=== PATIENT | male | born 1935 | race Caucasian/White ===

== ENCOUNTER 2023-04-02 10:35 | Observation (INO) ==
[2023-04-02] MEDS ORDERED: IOPAMIDOL 100 ML BOTTLE IV ONE (10:36)
[2023-04-02 10:54] LABS: POC INR 1.2 (0.8-1.2); POC Pro Time 13.9 (11.9-14.5)
[2023-04-02 11:01] LABS: POC Calcium, Ionized 1.03 (1.16-1.32); POC Creatinine 0.8 (0.6-1.2); POC Potassium 3.9 (3.3-5.1)
--- NOTE | 2023-04-02 11:31 | Cat Scan Report ---
History: Acute stroke symptoms with double vision. technique: The brain was imaged without contrast in axial plane at 2.5 mm intervals. Sagittal and coronal reformats were created. The radiation exposure was limited using dose reduction technology. FINDINGS: There is no acute hemorrhage. No infarct is detected. There are are large confluent areas of decreased attenuation in the white matter throughout the frontal and parietal lobes consistent with age-related ischemia or degeneration. There is moderate frontal and temporal and milder parietal and cerebellar atrophy. The ventricles are normal in size. No abnormal extra-axial fluid collection is present. There is a plate at the left skull base behind the foramen magnum following recent cervical spine fusion. There is no apparent inflammation or hematoma at this site. IMPRESSION: No no hemorrhage or evidence of acute infarct Age-related degenerative changes Dr. Figueroa was called with the report Interpreted and Authenticated by: Tl Bailey 04/02/23
[2023-04-02 11:46] LABS: Basophils # (Auto) 0.04 K/mcL (0.00-0.30); Basophils % (Auto) 0.4 % (0.0-2.0); Eosinophils # (Auto) 0.05 K/mcL (0.00-0.70); Eosinophils % (Auto) 0.5 % (0.0-7.0); Hematocrit 36.2 % (40.1-51.0); Hemoglobin 12.2 g/dL (13.7-17.5); Lymphocytes # (Auto) 1.48 K/mcL (1.50-4.80); Lymphocytes % (Auto) 14.3 % (15.5-49.0); Mean Corpuscular HGB Conc 33.7 g/dL (31.0-36.0); Mean Platelet Volume 9.4 fL (8.8-12.5); Monocytes # (Auto) 0.59 K/mcL (0.10-0.90); Monocytes % (Auto) 5.7 % (1.0-12.0); Neutrophils % (Auto) 77.9 % (38.0-78.0); Platelet Count 289 K/mcL (140-440); RBC 3.98 M/mcL (4.63-6.08); WBC 10.3 K/mcL (4.5-11.0)
--- NOTE | 2023-04-02 12:04 | Cat Scan Report ---
History: New stroke symptoms and double vision TECHNIQUE: Following injection of intravenous nonionic contrast, arterial phase images were acquired from the ascending aorta to the top of the head. Sagittal, coronal, MIPS and 3-D volume reconstructed images were created. The radiation exposure was limited using dose reduction technology NECK: The aortic arch is normal in caliber with small amount of plaque. There is no aneurysm or dissection. There is a moderate amount of plaque in the innominate artery causing approximately 25% stenosis. There is also plaque in the proximal subclavian arteries bilaterally causing 30% stenosis in the left and less than 20% on the right. The proximal and mid portions of the common carotid arteries are normal in caliber. There is a large amount calcified plaque in the right carotid bifurcation and a moderate amount on the left side. This is causing a critical stenosis of the right external carotid and approximately 50% stenosis of the left external carotid. There is a 50% stenosis of the proximal right internal carotid and less than 20% stenosis in the left internal carotid. Mid and distal portions of both internal carotids are normal in caliber. The vertebral arteries are normal. The left side is dominant. Patient has mild emphysema in both upper lobes, right worse than left. There are postoperative changes following stabilization of a transverse fracture of the odontoid. There are screws placed from a posterior approach into the dens and body of C2. They are connected posteriorly with rods which are secured to the occiput. There is also bone graft material posterior to the spinous processes of C1 and C2. Brain: The petrous and cavernous portions of both internal carotids are patent. There are small calcified plaques in the cavernous portions of both internal carotids which are not causing stenosis. Supraclinoid internal carotids are normal. The anterior and middle cerebral arteries are normal in caliber. There is a patent anterior communicating artery. The intracranial portions of both vertebral arteries are normal. The left is dominant. The basilar artery is normal. There is normal blood flow in the posterior inferior, anterior inferior and superior cerebellar arteries. The posterior cerebral arteries fill preferentially be a large posterior communicating arteries. The P1 segments of the posterior cerebrals are congenitally hypoplastic but patent. There is no intracranial stenosis or thrombosis. No aneurysm or vascular malformation are present. There is no enhancing lesion. IMPRESSION: Large amount of calcified plaque in the right carotid bifurcation causing critical stenosis of the external carotid and approximately 50% stenosis of the internal carotid. Normal intracranial arterial circulation with no vascular occlusion. Emphysema Normal alignment following fusion from the occiput through C2 Dr. Figueroa was called with the report Interpreted and Authenticated by: Tl Bailey 04/02/23
[2023-04-02 12:05] LABS: ALT/SGPT 9 U/L (<40); AST/SGOT 17 U/L (<40); Albumin 3.5 gm/dL (3.2-5.2); Alkaline Phosphatase 75 U/L (39-117); Bilirubin,Direct < 0.2 mg/dL (0-0.3); Bilirubin,Total 0.3 mg/dL (0.1-1.0); Globulin 2.8 gm/dL (2.2-3.7)
[2023-04-02] MEDS ORDERED: CLOPIDOGREL 300 MG TABLET PO ONE (12:20)
[2023-04-02] MEDS ORDERED: ASPIRIN 325 MG ENTERIC COATED TABLET PO SCH (12:28)
--- NOTE | 2023-04-02 12:55 | Emergency Department Note ---
HPI General Chief complaint: Stroke Symptoms Stated complaint: Double vision Time Seen by Provider: 04/02/23 10:58 Source: patient Mode of arrival: EMS Limitations: no limitations History of Present Illness HPI Narrative: Narrative: 88-year-old male lives with his son at home. States that he awoke at 415 this morning. (He went to bed at 930). With double vision when he looked to the right. He denied any headache or any other symptoms denied any antecedent trauma. He said it felt like something was in his eye and that is why he waited until his granddaughter came over and forced him to come to the ER. Patient's past medical history includes COPD diabetes mellitus type 2 hypertension C1-C2 subluxation with recent surgery for fixating that. Related Data Home Medications Medication Instructions Recorded Confirmed acetaminophen 325 mg tablet 650 mg PO .q4-6 PRN Pain 02/07/23 04/02/23 (Tylenol) Previous Rx's Medication Instructions Recorded diclofenac sodium 1 % topical gel See Rx Instructions .Route 06/15/21 .COMPLEX #100 grams albuterol sulfate 90 mcg/actuation 2 puff inhalation Q6H PRN 03/04/22 aerosol inhaler shortness of breath or wheezing #6.7 grams omeprazole 20 mg capsule,delayed 20 mg PO QDAY #90 caps 04/13/22 release sertraline 100 mg tablet 100 mg PO QDAY #90 tabs 09/27/22 metformin 500 mg tablet,extended 500 mg PO QDAY #90 tabs 10/04/22 release 24 hr pravastatin 40 mg tablet 40 mg PO QHS #90 tabs 10/11/22 ipratropium bromide 42 mcg (0.06 2 spray intranasal TID-QID PRN 12/09/22 %) nasal spray allergy symptoms #15 mL prednisone 5 mg tablet 5 mg PO QDAY #60 tabs 01/03/23 budesonide-formoterol HFA 160 2 puff inhalation BID #10.2 grams 01/27/23 mcg-4.5 mcg/actuation aerosol inhaler (Symbicort) lidocaine 5 % topical patch 1 patch topical QDAY neck pain #15 01/27/23 (Lidoderm) ea folic acid 1 mg tablet 1 mg PO QDAY #90 tabs 01/31/23 methotrexate sodium 2.5 mg tablet 25 mg PO QWEEK #120 tabs 02/03/23 trazodone 50 mg tablet 100 mg PO QHS PRN insomnia #90 tabs 02/21/23 Allergies Allergy/AdvReac Type Severity Reaction Status Date / Time No Known Drug Allergies Allergy Verified 02/07/23 10:12 Review of Systems ROS ROS Narrative: Narrative: All systems ED: reviewed and negative except as stated. PFSH Narrative Patient History Narrative: Narrative: Medical/Surgical/Family History All Active Problems (Updated 04/02/23 @ 12:57 by Gregg Figueroa MD) Binocular vision disorder with diplopia (Acute) Visit for suture removal (Acute) Chronic pain (Chronic) C1-C2 dislocation (Chronic) Difficulty sleeping (Acute) S/P cervical spinal fusion (Acute) Neck pain, chronic (Acute) Elevated erythrocyte sedimentation rate (Acute) Odontoid fracture with nonunion (Acute) Degenerative cervical spinal stenosis (Acute) DDD (degenerative disc disease), cervical (Acute) Anemia (Chronic) Anxiety (Chronic 06/25/14) Barretts esophagus (Chronic) COPD (chronic obstructive pulmonary disease) (Chronic) Cough (Chronic) Depression (Chronic) 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) Gastroesophageal reflux (Chronic) Hyperlipemia (Chronic) Essential hypertension, benign (Chronic) Dysmetabolic syndrome X (Chronic) Obstructive uropathy (Chronic) Onychomycosis (Chronic) Osteoarthrosis (Chronic) Peripheral neuropathy (Chronic) Peripheral vascular disease (Chronic) 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, lip (Chronic) Tobacco abuse (Chronic) Tremor (Chronic) Enlarged prostate (Chronic) 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) Presence of intraocular lens (Chronic 10/24/15) Ocular hypertension, 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 degeneration of both eyes (Chronic 10/24/15) Weight loss (Chronic) Thenar muscle atrophy of right hand (Chronic) Right hand paresthesia (Chronic) Neck pain (Chronic) Metabolic Syndrome X (Chronic) Radicular pain in right arm (Acute) Rheumatoid arthritis (Chronic) Encounter for long-term (current) use of high-risk medication (Chronic) Right carpal tunnel syndrome (Chronic) 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) Near syncope (Acute) 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) Stress (Chronic) Decreased hearing of both ears (Chronic) Poor dentition (Chronic) Alcohol abuse (Chronic) Medicare annual wellness visit, subsequent (Acute) BPH w urinary obs/LUTS (Acute) Dizziness (Acute) 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 Now down to 1 beer every 2 days, but feeling some agitation that is relieved by beer Encouraged to very slowly wean down on the alcohol rather than trying to quit cold turkey Anemia H/O Anxiety (06/25/14) Increased anxiety since the loss of his . Also likely associated with decreased alcohol intake. Increase sertraline to 50 mg daily He does not use lorazepam at all anymore Discussed slowly weaning off alcohol Barretts esophagus Prilosec 20 mg daily. No reflux symptoms. 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 Peng resected Cellulitis Chronic pain Closed fracture of leg Closed hand fracture COPD (chronic obstructive pulmonary disease) No recent PFTs Cough Chest x-ray 01/16/2018 showed COPD Decreased hearing of both ears Patient potentially interested in hearing aids. Refusing audiology referral. He wants to go to [facility] and get tested there. 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 Cervantes Obstructive uropathy Ocular hypertension, bilateral (10/24/15) Dr. Cervantes Onychomycosis Osteoarthrosis Peripheral neuropathy Diabetic Peripheral vascular disease Poor dentition States he has been putting off going to the dentist while he was having his neck problems. But now that he is adequately treated for RA, he states that he will go to the dentist to get his teeth worked on. Presence of intraocular lens (10/24/15) Reactive airway disease Rheumatoid arthritis Rheumatoid pannus of cervical spine Tobacco abuse Greater than 55-[id number]-[id number] history. Continues to smoke every day, about 2 p acks/day. Tremor Trigger finger of both hands Vitreous degeneration of both eyes (10/24/15) Dr. Cervantes Surgical History (Updated 01/27/23 @ 10:15 by Darryl Luna DO) Hx of arthroscopic knee surgery right Hx of cataract surgery bilateral Hx of colonoscopy (03/02/06) multiple HP colonic polyps Hx of decompressive lumbar laminectomy Hx of esophagogastroduodenoscopy (03/06/09) Arce's metaplasia Hx of inguinal hernia repair 01/2007-left inguinal hernia Hx of thumb surgery 05/2006-removal mass from right thumb Hx of tonsillectomy Status post surgery 12/2012-extensive resection of lower lip, mostly to the right side for malignancy Family History father , 53 Carcinoma in situ brother Atherosclerosis of coronary artery Diabetes mellitus mother , 91 Senile dementia Social History Smoking Status: Current every day smoker Alcohol Intake Frequency: 2+ drinks per day Substance Use: does not use Exam Narrative Narrative: Narrative: General: Alert and oriented x3 answers questions cogently GCS equals 15. Skin: Atraumatic. Neuro: Pupils equal round reactive and accommodating extraocular movements are intact confrontational visual duncan are within normal limits GCS equals 15 NIH stroke scaling was difficult as patient has difficulty testing the lower extremities. But no peripheral lysing sensory or motor deficit was noticed. CV: Regular rate and rhythm without murmurs clicks rubs or gallops. Pulmonary: Clear to auscultation equal bilaterally without rales rhonchi or wheezes. General Limitations: no limitations Course Course Course Narrative: CT scan with and without dye for showed a fairly significant stenosis in the right carotid and the bifurcation of the carotid but no complete obstruction. The radiologist stated that the basilar circulation seem to be intact however the neurologist who was consulted and felt this was typical for a basilar stroke. He advised aspirin and clopidogrel and an MRA soon as possible. Patient was admitted in the hospitalist agreed to see the patient in the ED. Vital Signs Vital signs: Vital Signs Temperature 97.0 F 04/02/23 10:40 Pulse Rate 67 04/02/23 10:40 Respiratory Rate 17 04/02/23 10:40 Blood Pressure 135/75 04/02/23 10:40 Pulse Oximetry (%) 100 04/02/23 10:40 Oxygen Delivery Method Room Air 04/02/23 10:40 Temperature 98.4 F 04/03/23 04:01 Pulse Rate 60 04/03/23 06:01 Respiratory Rate 12 04/03/23 06:01 Blood Pressure 125/63 04/03/23 06:01 Pulse Oximetry (%) 96 04/03/23 06:01 Oxygen Delivery Method Room Air 04/03/23 04:01 MDM MDM Narrative Medical decision making narrative: Narrative: Lab Data 04/02/23 10:55 04/03/23 05:16 Labs: Lab Results 04/02/23 04/02/23 04/02/23 Range/Units 10:49 10:55 10:55 WBC 10.3 (4.5-11.0) K/mcL RBC 3.98 L (4.63-6.08) M/mcL Hgb 12.2 L (13.7-17.5) g/dL Hct 36.2 L (40.1-51.0) % POC Hct (41-55) MCV 91.0 (80.0-100.0) fL MCH 30.7 (26.0-34.0) pg MCHC 33.7 (31.0-36.0) g/dL RDW 16.0 H (11.5-14.5) % Plt Count 289 (140-440) K/mcL MPV 9.4 (8.8-12.5) fL Immature Gran % (Auto) 1.2 H (0.0-0.5) % Neut % (Auto) 77.9 (38.0-78.0) % Lymph % (Auto) 14.3 L (15.5-49.0) % [place] % (Auto) 5.7 (1.0-12.0) % Eos % (Auto) 0.5 (0.0-7.0) % Baso % (Auto) 0.4 (0.0-2.0) % Lymph # (Auto) 1.48 L (1.50-4.80) K/mcL [place] # (Auto) 0.59 (0.10-0.90) K/mcL Eos # (Auto) 0.05 (0.00-0.70) K/mcL Baso # (Auto) 0.04 (0.00-0.30) K/mcL Immature Gran # 0.12 H (0.00-0.05) K/mcl Absolute Neutrophils 8.06 H (1.80-8.00) K/mcL POC PT 13.9 (11.9-14.5) POC INR 1.2 (0.8-1.2) APTT 24.6 (20.0-37.0) sec POC VBG pH (7.32-7.42) POC VBG pCO2 at Temp (41-51) POC VBG pO2 (25-40) POC VBG HCO3 (24-28) POC VBG Total CO2 (25-29) POC Venous O2 Sat (40-70) POC VBG Base Excess (-2-2) VBG Lactic Acid (0.5-2) POC Sodium (133-145) POC Potassium (3.3-5.1) POC Chloride (96-108) POC Total CO2 (22-30) POC BUN (6-20) POC Creatinine (0.6-1.2) POC Glucose (70-105) Hemoglobin A1c (4.0-6.0) % Hgb Estim Average Glucose mg/dL POC WB Ioniz Calcium (1.16-1.32) Total Bilirubin (0.1-1.0) mg/dL Direct Bilirubin (0-0.3) mg/dL AST (<40) U/L ALT (<40) U/L Alkaline Phosphatase (39-117) U/L Total Protein (5.9-8.4) gm/dL Albumin (3.2-5.2) gm/dL Globulin (2.2-3.7) gm/dL Triglycerides (<150) mg/dL Cholesterol (<200) mg/dL LDL Cholesterol, Calc (<100) mg/dL Non-HDL Cholesterol (<130) mg/dL HDL Cholesterol (>40) mg/dL POC Troponin I (0.00-0.08) 04/02/23 04/02/23 04/02/23 Range/Units 10:55 10:55 10:56 WBC (4.5-11.0) K/mcL RBC (4.63-6.08) M/mcL Hgb (13.7-17.5) g/dL Hct (40.1-51.0) % POC Hct (41-55) MCV (80.0-100.0) fL MCH (26.0-34.0) pg MCHC (31.0-36.0) g/dL RDW (11.5-14.5) % Plt Count (140-440) K/mcL MPV (8.8-12.5) fL Immature Gran % (Auto) (0.0-0.5) % Neut % (Auto) (38.0-78.0) % Lymph % (Auto) (15.5-49.0) % [place] % (Auto) (1.0-12.0) % Eos % (Auto) (0.0-7.0) % Baso % (Auto) (0.0-2.0) % Lymph # (Auto) (1.50-4.80) K/mcL [place] # (Auto) (0.10-0.90) K/mcL Eos # (Auto) (0.00-0.70) K/mcL Baso # (Auto) (0.00-0.30) K/mcL Immature Gran # (0.00-0.05) K/mcl Absolute Neutrophils (1.80-8.00) K/mcL POC PT (11.9-14.5) POC INR (0.8-1.2) APTT (20.0-37.0) sec POC VBG pH 7.47 H (7.32-7.42) POC VBG pCO2 at Temp 37.6 L (41-51) POC VBG pO2 37 (25-40) POC VBG HCO3 27.2 (24-28) POC VBG Total CO2 28.0 (25-29) POC Venous O2 Sat 75.0 H (40-70) POC VBG Base Excess 3.0 H (-2-2) VBG Lactic Acid 1.2 (0.5-2) POC Sodium (133-145) POC Potassium (3.3-5.1) POC Chloride (96-108) POC Total CO2 (22-30) POC BUN (6-20) POC Creatinine (0.6-1.2) POC Glucose (70-105) Hemoglobin A1c 6.3 H (4.0-6.0) % Hgb Estim Average Glucose 134 mg/dL POC WB Ioniz Calcium (1.16-1.32) Total Bilirubin 0.3 (0.1-1.0) mg/dL Direct Bilirubin < 0.2 (0-0.3) mg/dL AST 17 (<40) U/L ALT 9 (<40) U/L Alkaline Phosphatase 75 (39-117) U/L Total Protein 6.3 (5.9-8.4) gm/dL Albumin 3.5 (3.2-5.2) gm/dL Globulin 2.8 (2.2-3.7) gm/dL Triglycerides 108 (<150) mg/dL Cholesterol 169 (<200) mg/dL LDL Cholesterol, Calc 82 (<100) mg/dL Non-HDL Cholesterol 103 (<130) mg/dL HDL Cholesterol 66 (>40) mg/dL POC Troponin I (0.00-0.08) 04/02/23 04/02/23 Range/Units 10:59 11:01 WBC (4.5-11.0) K/mcL RBC (4.63-6.08) M/mcL Hgb (13.7-17.5) g/dL Hct (40.1-51.0) % POC Hct 39.0 L (41-55) MCV (80.0-100.0) fL MCH (26.0-34.0) pg MCHC (31.0-36.0) g/dL RDW (11.5-14.5) % Plt Count (140-440) K/mcL MPV (8.8-12.5) fL Immature Gran % (Auto) (0.0-0.5) % Neut % (Auto) (38.0-78.0) % Lymph % (Auto) (15.5-49.0) % [place] % (Auto) (1.0-12.0) % Eos % (Auto) (0.0-7.0) % Baso % (Auto) (0.0-2.0) % Lymph # (Auto) (1.50-4.80) K/mcL [place] # (Auto) (0.10-0.90) K/mcL Eos # (Auto) (0.00-0.70) K/mcL Baso # (Auto) (0.00-0.30) K/mcL Immature Gran # (0.00-0.05) K/mcl Absolute Neutrophils (1.80-8.00) K/mcL POC PT (11.9-14.5) POC INR (0.8-1.2) APTT (20.0-37.0) sec POC VBG pH (7.32-7.42) POC VBG pCO2 at Temp (41-51) POC VBG pO2 (25-40) POC VBG HCO3 (24-28) POC VBG Total CO2 (25-29) POC Venous O2 Sat (40-70) POC VBG Base Excess (-2-2) VBG Lactic Acid (0.5-2) POC Sodium 137 (133-145) POC Potassium 3.9 (3.3-5.1) POC Chloride 103 (96-108) POC Total CO2 26.0 (22-30) POC BUN 19 (6-20) POC Creatinine 0.8 (0.6-1.2) POC Glucose 66 L (70-105) Hemoglobin A1c (4.0-6.0) % Hgb Estim Average Glucose mg/dL POC WB Ioniz Calcium 1.03 L (1.16-1.32) Total Bilirubin (0.1-1.0) mg/dL Direct Bilirubin (0-0.3) mg/dL AST (<40) U/L ALT (<40) U/L Alkaline Phosphatase (39-117) U/L Total Protein (5.9-8.4) gm/dL Albumin (3.2-5.2) gm/dL Globulin (2.2-3.7) gm/dL Triglycerides (<150) mg/dL Cholesterol (<200) mg/dL LDL Cholesterol, Calc (<100) mg/dL Non-HDL Cholesterol (<130) mg/dL HDL Cholesterol (>40) mg/dL POC Troponin I < 0.02 (0.00-0.08) Discharge Plan Patient/Caregiver Discharge Instructions Pt seen by LAMINATION ASSEMBLER/PA only: No Clinical Impression: Binocular vision disorder with diplopia Patient Disposition: Xfer As Inpt ([facility]) Condition: Good Discharge Date/Time: 04/02/23 14:55
--- NOTE | 2023-04-02 13:10 | Internal Med History&Physical ---
HPI History of Present Illness Patient information: Note initiated : 04/02/23 at 1:09 pm Service Date, if different from initiated Date: [] Patient: Joey West a 88 y/o M admitted on for Double vision. Chief Complaint: [] History of present illness: Mr. West is a 88 year old M Presents the ED with blurry vision. Patient is accompanied by his granddaughter. Patient states that he woke up today around 430 and he had trouble seeing. He talked his granddaughter at 10:00 and said he had something in his eye. His granddaughter came over but could not find anything in his eye. He noted that he had blurry vision that worsened when he looked to the right. Patient seen in the ED and evaluated for stroke. Noncontrast CT brain showed no acute stroke or hemorrhage. CTA head and neck showed 50% stenosis in the right internal carotid and less than the left. Case was discussed with stroke neurologist who recommended dual antiplatelet therapy. Patient denies any headache nausea vomiting. Patient denies any focal weakness or numbness. Patient denies any speech disturbance. Patient says his symptoms have improved but are still present. EKG with NSR. Review of Systems: Pertinent positives as above. Denies headache/fever/chills /nausea/vomiting/chest or abdominal pain/cough/dyspnea/diarrhea. Remaining 10 point review of system reviewed negative PHYSICAL EXAM General: Alert, Awake, No acute Distress Eyes/N/T: EOMI, no scleral icterus, PERRL, dry MM Head/Neck: neck supple, full ROM, normocephalic atraumatic CV: RRR, No murmurs, normal s1/s2 Pulm: Clear b/l, no wheezing/rhonchi/rales, no respiratory distress Abd: soft, nontender, +BS x4 Ext: no clubbing/cyanosis/edema, nontender Neuro: Alert, no pronator drift, symmetrical face, speech clear, sensations intact, strength appears symmetrical bilateral upper and lower. Patient unable to adduct his left eye (medial rectus). Psychiatric: Skin: warm/dry, normal color PFSH PFSH All Active Problems (Updated 04/02/23 @ 12:57 by Gregg Figueroa MD) Binocular vision disorder with diplopia (Acute) Visit for suture removal (Acute) Chronic pain (Chronic) C1-C2 dislocation (Chronic) Difficulty sleeping (Acute) S/P cervical spinal fusion (Acute) Neck pain, chronic (Acute) Elevated erythrocyte sedimentation rate (Acute) Odontoid fracture with nonunion (Acute) Degenerative cervical spinal stenosis (Acute) DDD (degenerative disc disease), cervical (Acute) Anemia (Chronic) Anxiety (Chronic 06/25/14) Barretts esophagus (Chronic) COPD (chronic obstructive pulmonary disease) (Chronic) Cough (Chronic) Depression (Chronic) 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) Gastroesophageal reflux (Chronic) Hyperlipemia (Chronic) Essential hypertension, benign (Chronic) Dysmetabolic syndrome X (Chronic) Obstructive uropathy (Chronic) Onychomycosis (Chronic) Osteoarthrosis (Chronic) Peripheral neuropathy (Chronic) Peripheral vascular disease (Chronic) 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, lip (Chronic) Tobacco abuse (Chronic) Tremor (Chronic) Enlarged prostate (Chronic) 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) Presence of intraocular lens (Chronic 10/24/15) Ocular hypertension, 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 degeneration of both eyes (Chronic 10/24/15) Weight loss (Chronic) Thenar muscle atrophy of right hand (Chronic) Right hand paresthesia (Chronic) Neck pain (Chronic) Metabolic Syndrome X (Chronic) Radicular pain in right arm (Acute) Rheumatoid arthritis (Chronic) Encounter for long-term (current) use of high-risk medication (Chronic) Right carpal tunnel syndrome (Chronic) 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) Near syncope (Acute) 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) Stress (Chronic) Decreased hearing of both ears (Chronic) Poor dentition (Chronic) Alcohol abuse (Chronic) Medicare annual wellness visit, subsequent (Acute) BPH w urinary obs/LUTS (Acute) Dizziness (Acute) intermediate (current) use of systemic steroids (Chronic) Poor balance (Acute) Trigger finger of both hands (Acute) 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 Now down to 1 beer every 2 days, but feeling some agitation that is relieved by beer Encouraged to very slowly wean down on the alcohol rather than trying to quit cold turkey Anemia H/O Anxiety (06/25/14) Increased anxiety since the loss of his . Also likely associated with decreased alcohol intake. Increase sertraline to 50 mg daily He does not use lorazepam at all anymore Discussed slowly weaning off alcohol Barretts esophagus Prilosec 20 mg daily. No reflux symptoms. 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 Peng resected Cellulitis Chronic pain Closed fracture of leg Closed hand fracture COPD (chronic obstructive pulmonary disease) No recent PFTs Cough Chest x-ray 01/16/2018 showed COPD Decreased hearing of both ears Patient potentially interested in hearing aids. Refusing audiology referral. He wants to go to [place] and get tested there. 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 Cervantes Obstructive uropathy Ocular hypertension, bilateral (10/24/15) Dr. Cervantes Onychomycosis Osteoarthrosis Peripheral neuropathy Diabetic Peripheral vascular disease Poor dentition States he has been putting off going to the dentist while he was having his neck problems. But now that he is adequately treated for RA, he states that he will go to the dentist to get his teeth worked on. Presence of intraocular lens (10/24/15) Reactive airway disease Rheumatoid arthritis Rheumatoid pannus of cervical spine Tobacco abuse Greater than 29-[id number]-crnf history. Continues to smoke every day, about 2 packs/day. Tremor Trigger finger of both hands Vitreous degeneration of both eyes (10/24/15) Dr. Cervantes Surgical History (Updated 01/27/23 @ 10:15 by Darryl Luna DO) Hx of arthroscopic knee surgery right Hx of cataract surgery bilateral Hx of colonoscopy (03/02/06) multiple HP colonic polyps Hx of decompressive lumbar laminectomy Hx of esophagogastroduodenoscopy (03/06/09) Arce's metaplasia Hx of inguinal hernia repair 01/2007-left inguinal hernia Hx of thumb surgery 05/2006-removal mass from right thumb Hx of tonsillectomy Status post surgery 12/2012-extensive resection of lower lip, mostly to the right side for malignancy Family History father , 53 Carcinoma in situ brother Atherosclerosis of coronary artery Diabetes mellitus mother , 91 Senile dementia Social History household members: spouse housing: house lives independently: Yes marital status: 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 smoking status: Current every day smoker tobacco type: cigarettes per day: 30 pack-years: 82 alcohol intake frequency: 2+ drinks per day substance use type: does not use MEDS/ALLERGIES Home Medications and Allergies Home Medications Medication Instructions Recorded Confirmed Type diclofenac sodium 1 % topical gel See Rx Instructions .Route 06/15/21 02/07/23 Rx .COMPLEX #100 grams albuterol sulfate 90 mcg/actuation 2 puff inhalation Q6H PRN 03/04/22 02/07/23 Rx aerosol inhaler shortness of breath or wheezing #6.7 grams omeprazole 20 mg capsule,delayed 20 mg PO QDAY #90 caps 04/13/22 02/07/23 Rx release sertraline 100 mg tablet 100 mg PO QDAY #90 tabs 09/27/22 02/07/23 Rx metformin 500 mg tablet,extended 500 mg PO QDAY #90 tabs 10/04/22 02/07/23 Rx release 24 hr pravastatin 40 mg tablet 40 mg PO QHS #90 tabs 10/11/22 02/07/23 Rx ipratropium bromide 42 mcg (0.06 2 spray intranasal TID-QID PRN 12/09/22 02/07/23 Rx %) nasal spray allergy symptoms #15 mL prednisone 5 mg tablet 5 mg PO QDAY #60 tabs 01/03/23 02/07/23 Rx budesonide-formoterol HFA 160 2 puff inhalation BID #10.2 grams 01/27/23 02/07/23 Rx mcg-4.5 mcg/actuation aerosol inhaler (Symbicort) lidocaine 5 % topical patch 1 patch topical QDAY neck pain #15 01/27/23 02/07/23 Rx (Lidoderm) ea folic acid 1 mg tablet 1 mg PO QDAY #90 tabs 01/31/23 02/07/23 Rx methotrexate sodium 2.5 mg tablet 25 mg PO QWEEK #120 tabs 02/03/23 02/07/23 Rx acetaminophen 325 mg tablet 650 mg PO .q4-6 PRN 02/07/23 02/07/23 History (Tylenol) trazodone 50 mg tablet 100 mg PO QHS PRN insomnia #90 tabs 02/21/23 Rx Allergies Allergy/AdvReac Type Severity Reaction Status Date / Time No Known Drug Allergies Allergy Verified 02/07/23 10:12 EXAM Constitutional Vitals: Temp Pulse Resp BP Pulse Ox O2 Del Method 97.0 F 63 14 132/70 100 Room Air 04/02/23 10:40 04/02/23 12:31 04/02/23 12:31 04/02/23 12:31 04/02/23 12:31 04/02/23 10:40 DATA Data Completed and Pending Labs: Labs from last 24 hours 04/02/23 04/02/23 04/02/23 11:01 10:59 10:56 WBC RBC Hgb Hct POC Hct 39.0 L MCV MCH MCHC RDW Plt Count MPV Immature Gran % (Auto) Neut % (Auto) Lymph % (Auto) Weber % (Auto) Eos % (Auto) Baso % (Auto) Lymph # (Auto) Weber # (Auto) Eos # (Auto) Baso # (Auto) Immature Gran # Absolute Neutrophils POC PT POC INR APTT POC VBG pH 7.47 H POC VBG pCO2 at Temp 37.6 L POC VBG pO2 37 POC VBG HCO3 27.2 POC VBG Total CO2 28.0 POC Venous O2 Sat 75.0 H POC VBG Base Excess 3.0 H VBG Lactic Acid 1.2 POC Sodium 137 POC Potassium 3.9 POC Chloride 103 POC Total CO2 26.0 POC BUN 19 POC Creatinine 0.8 POC Glucose 66 L POC WB Ioniz Calcium 1.03 L Total Bilirubin Direct Bilirubin AST ALT Alkaline Phosphatase Total Protein Albumin Globulin POC Troponin I < 0.02 04/02/23 04/02/23 04/02/23 10:55 10:55 10:55 WBC 10.3 RBC 3.98 L Hgb 12.2 L Hct 36.2 L POC Hct MCV 91.0 MCH 30.7 MCHC 33.7 RDW 16.0 H Plt Count 289 MPV 9.4 Immature Gran % (Auto) 1.2 H Neut % (Auto) 77.9 Lymph % (Auto) 14.3 L Weber % (Auto) 5.7 Eos % (Auto) 0.5 Baso % (Auto) 0.4 Lymph # (Auto) 1.48 L Weber # (Auto) 0.59 Eos # (Auto) 0.05 Baso # (Auto) 0.04 Immature Gran # 0.12 H Absolute Neutrophils 8.06 H POC PT POC INR APTT 24.6 POC VBG pH POC VBG pCO2 at Temp POC VBG pO2 POC VBG HCO3 POC VBG Total CO2 POC Venous O2 Sat POC VBG Base Excess VBG Lactic Acid POC Sodium POC Potassium POC Chloride POC Total CO2 POC BUN POC Creatinine POC Glucose POC WB Ioniz Calcium Total Bilirubin 0.3 Direct Bilirubin < 0.2 AST 17 ALT 9 Alkaline Phosphatase 75 Total Protein 6.3 Albumin 3.5 Globulin 2.8 POC Troponin I 04/02/23 10:49 WBC RBC Hgb Hct POC Hct MCV MCH MCHC RDW Plt Count MPV Immature Gran % (Auto) Neut % (Auto) Lymph % (Auto) Weber % (Auto) Eos % (Auto) Baso % (Auto) Lymph # (Auto) Weber # (Auto) Eos # (Auto) Baso # (Auto) Immature Gran # Absolute Neutrophils POC PT 13.9 POC INR 1.2 APTT POC VBG pH POC VBG pCO2 at Temp POC VBG pO2 POC VBG HCO3 POC VBG Total CO2 POC Venous O2 Sat POC VBG Base Excess VBG Lactic Acid POC Sodium POC Potassium POC Chloride POC Total CO2 POC BUN POC Creatinine POC Glucose POC WB Ioniz Calcium Total Bilirubin Direct Bilirubin AST ALT Alkaline Phosphatase Total Protein Albumin Globulin POC Troponin I A/P Narrative A/P Narrative: A: *Strokelike symptoms diplopia, 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 Hill regarding Right IC stenosis -Smoking cessation counseling >3 minutes -ppx: Lovenox Time Spent With Patient Time: Total time spent is greater than 50% in coordination of care (as documented) at patient's floor/unit and/or counseling patient: QUALITY Stroke Symptom Onset Unknown: Yes
--- NOTE | 2023-04-02 13:50 | Magnetic Resonance Report ---
History: Acute stroke symptoms in a posterior fossa distribution TECHNIQUE: Stroke protocol was performed. FINDINGS: There is metal hardware along the inferior aspect of the occiput following prior fusion from C2 through the base of the occiput. This creates susceptibility artifact on the inferior medial border of both cerebellar hemispheres. The remainder the cerebellum is normal without evidence of an infarct. The brainstem is normal without infarct or mass. Above the tentorium there are multiple high signal lesions in the white matter predominantly involving the frontal and parietal lobes. They have no restricted diffusion or mass effect. This is due to age-related ischemia or degeneration. No cortical lesion is present. There is mild generalized atrophy. The ventricles are prominent but proportionate to the atrophy. There is no hemorrhage or mass. No abnormal extra-axial fluid collection is present. IMPRESSION: No evidence of an infarct. Moderate white matter disease above the tentorium consistent with patient's age. Dr. Freitas was called with the report Interpreted and Authenticated by: Tl Bailey 04/02/23
[2023-04-02] MEDS ORDERED: POTASSIUM CHLORIDE 20 MEQ TABLET PO PRN ×2 (14:43)
[2023-04-02] MEDS ORDERED: MAGNESIUM SULFATE 2 GM/50 ML BAG IV PRN (14:43)
[2023-04-02] MEDS ORDERED: POLYETHYLENE GLYCOL 3350 17 GM PACKET PO PRN (14:43)
[2023-04-02] MEDS ORDERED: ACETAMINOPHEN 325 MG TABLET PO PRN (14:43)
[2023-04-02] MEDS ORDERED: SENNOSIDES 1 TABLET PO PRN (14:43)
[2023-04-02] MEDS ORDERED: POTASSIUM CHLORIDE 40 MEQ in DEXTROSE 5% IN WATER 500 ML IV PRN (14:43)
[2023-04-02] MEDS ORDERED: ONDANSETRON 4 MG/2 ML VIAL IV PRN (14:43)
[2023-04-02] MEDS ORDERED: 0.9 % SODIUM CHLORIDE 1,000 ML IV SCH (14:43)
[2023-04-02] MEDS ORDERED: IPRATROPIUM/ALBUTEROL 3 ML AMPUL.NEB NEB PRN (14:43)
[2023-04-02] MEDS: 0.9 % SODIUM CHLORIDE 10 ML SYRINGE IV SCH ×2 (15:12→21:10)
[2023-04-02 15:46] LABS: Hemoglobin A1C 6.3 % Hgb (4.0-6.0)
[2023-04-02] MEDS ORDERED: traZODone HCL 50 MG TABLET PO PRN (19:38)
[2023-04-02] MEDS ORDERED: ATORVASTATIN 40 MG TABLET PO SCH (21:00)
[2023-04-02] MEDS: BUDESONIDE FORMOTEROL INH SCH (21:04)
[2023-04-02] MEDS: DOCUSATE SODIUM 100 MG CAPSULE PO SCH (21:09)
[2023-04-03] MEDS: 0.9 % SODIUM CHLORIDE 10 ML SYRINGE IV SCH (05:47)
[2023-04-03 06:38] LABS: ALT/SGPT 7 U/L (<40); AST/SGOT 15 U/L (<40); Albumin 2.9 gm/dL (3.2-5.2); Alkaline Phosphatase 69 U/L (39-117); Bilirubin,Direct < 0.2 mg/dL (0-0.3); Bilirubin,Total 0.2 mg/dL (0.1-1.0); Blood Urea Nitrogen 15 mg/dL (8-23); Calcium 8.4 mg/dL (8.6-10.4); Carbon Dioxide 28 mmol/L (22-30); Chloride 103 mmol/L (96-108); Globulin 2.8 gm/dL (2.2-3.7); Glomerular Filtration Rate 81; Glucose 76 mg/dL (70-105); Lactate Dehydrogenase 201 U/L (135-225); Phosphorous 3.3 mg/dL (2.5-4.5); Triglycerides 69 mg/dL (<150); Uric Acid 5.1 mg/dL (2.5-8.0)
[2023-04-03] MEDS ORDERED: OMEPRAZOLE 20 MG CAPSULE PO SCH (07:30)
--- NOTE | 2023-04-03 08:07 | Discharge Summary ---
Discharge Provider Provider IMPORTANT FOLLOW-UP INFORMATION FOR PCP: Patient information: Note initiated : 04/03/23 at 8:05 am Service Date, if different from initiated Date: [] Patient: Joey West 88 y/o M admitted on 04/02/23 for Stroke Symptoms. Chief Complaint: [] Date of admission: 04/02/23 14:05 Discharge date: 04/03/23 Primary care physician: Darryl Luna DO Consults: 04/02/23 Consult to Physician [CONS] Stat Comment: Consulting Provider: Juan J Freitas Reason For Exam: Physician to Consult 04/02/23 10:42 Consult to Physician [CONS] Stat Comment: Consulting Provider: Telestroke,Provider Reason For Exam: Physician to Consult 04/02/23 10:52 Consult to Physician [CONS] Stat Comment: Consulting Provider: Telestroke-[facility]on Reason For Exam: Physician to Consult COURSE Hospital Course Hospital course: History of present illness: Mr. West is a 88 year old M Presents the ED with blurry vision. Patient is accompanied by his granddaughter. Patient states that he woke up today around 430 and he had trouble seeing. He talked his granddaughter at 10:00 and said he had something in his eye. His granddaughter came over but could not find anything in his eye. He noted that he had blurry vision that worsened when he looked to the right. Patient seen in the ED and evaluated for stroke. Noncontrast CT brain showed no acute stroke or hemorrhage. CTA head and neck showed 50% stenosis in the right internal carotid and less than the left. Case was discussed with stroke neurologist who recommended dual antiplatelet therapy. Patient denies any headache nausea vomiting. Patient denies any focal weakness or numbness. Patient denies any speech disturbance. Patient says his symptoms have improved but are still present. EKG with NSR. 04/03 Patient doing well. Still has some mild diplopia but better. No overnight event or new complaints. MRI no infarct noted. 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 Hill -statin -Follow-up with Dr. Hill regarding Right IC stenosis Discharge diagnosis: Diplopia internal carotid artery stenosis Secondary discharge diagnosis: Diabetes rheumatoid arthritis COPD anemia depression tobacco abuse Time Spent with Patient Time attestation: Total time spent providing and/or coordinating discharge services: Time spent: Greater than 30 minutes EXAM Constitutional Vitals: Temp Pulse Resp BP Pulse Ox O2 Del Method 98.4 F 60 12 125/63 96 Room Air 04/03/23 04:01 04/03/23 06:01 04/03/23 06:01 04/03/23 06:01 04/03/23 06:01 04/03/23 04:01 Discharge Data Data Completed and Pending Labs on day of discharge: Labs from last 24 hours 04/03/23 04/02/23 04/02/23 05:16 11:01 10:59 WBC RBC Hgb Hct POC Hct 39.0 L MCV MCH MCHC RDW Plt Count MPV Immature Gran % (Auto) Neut % (Auto) Lymph % (Auto) Chambers % (Auto) Eos % (Auto) Baso % (Auto) Lymph # (Auto) Chambers # (Auto) Eos # (Auto) Baso # (Auto) Immature Gran # Absolute Neutrophils POC PT POC INR APTT POC VBG pH POC VBG pCO2 at Temp POC VBG pO2 POC VBG HCO3 POC VBG Total CO2 POC Venous O2 Sat POC VBG Base Excess VBG Lactic Acid POC Sodium 137 Sodium 136 POC Potassium 3.9 Potassium 4.9 POC Chloride 103 Chloride 103 Carbon Dioxide 28 POC Total CO2 26.0 Anion Gap 5.0 L POC BUN 19 BUN 15 Creatinine 0.8 POC Creatinine 0.8 GFR Calculation 81 Glucose 76 POC Glucose 66 L Hemoglobin A1c Estim Average Glucose Uric Acid 5.1 Calcium 8.4 L POC WB Ioniz Calcium 1.03 L Phosphorus 3.3 Magnesium 2.1 Total Bilirubin 0.2 Direct Bilirubin < 0.2 GGT 20 AST 15 ALT 7 Alkaline Phosphatase 69 Lactate Dehydrogenase 201 Total Protein 5.7 L Albumin 2.9 L Globulin 2.8 Albumin/Globulin Ratio 1.0 Triglycerides 69 Cholesterol LDL Cholesterol, Calc Non-HDL Cholesterol HDL Cholesterol POC Troponin I < 0.02 04/02/23 04/02/23 04/02/23 10:56 10:55 10:55 WBC RBC Hgb Hct POC Hct MCV MCH MCHC RDW Plt Count MPV Immature Gran % (Auto) Neut % (Auto) Lymph % (Auto) Chambers % (Auto) Eos % (Auto) Baso % (Auto) Lymph # (Auto) Chambers # (Auto) Eos # (Auto) Baso # (Auto) Immature Gran # Absolute Neutrophils POC PT POC INR APTT POC VBG pH 7.47 H POC VBG pCO2 at Temp 37.6 L POC VBG pO2 37 POC VBG HCO3 27.2 POC VBG Total CO2 28.0 POC Venous O2 Sat 75.0 H POC VBG Base Excess 3.0 H VBG Lactic Acid 1.2 POC Sodium Sodium POC Potassium Potassium POC Chloride Chloride Carbon Dioxide POC Total CO2 Anion Gap POC BUN BUN Creatinine POC Creatinine GFR Calculation Glucose POC Glucose Hemoglobin A1c 6.3 H Estim Average Glucose 134 Uric Acid Calcium POC WB Ioniz Calcium Phosphorus Magnesium Total Bilirubin 0.3 Direct Bilirubin < 0.2 GGT AST 17 ALT 9 Alkaline Phosphatase 75 Lactate Dehydrogenase Total Protein 6.3 Albumin 3.5 Globulin 2.8 Albumin/Globulin Ratio Triglycerides 108 Cholesterol 169 LDL Cholesterol, Calc 82 Non-HDL Cholesterol 103 HDL Cholesterol 66 POC Troponin I 04/02/23 04/02/23 04/02/23 10:55 10:55 10:49 WBC 10.3 RBC 3.98 L Hgb 12.2 L Hct 36.2 L POC Hct MCV 91.0 MCH 30.7 MCHC 33.7 RDW 16.0 H Plt Count 289 MPV 9.4 Immature Gran % (Auto) 1.2 H Neut % (Auto) 77.9 Lymph % (Auto) 14.3 L Chambers % (Auto) 5.7 Eos % (Auto) 0.5 Baso % (Auto) 0.4 Lymph # (Auto) 1.48 L Chambers # (Auto) 0.59 Eos # (Auto) 0.05 Baso # (Auto) 0.04 Immature Gran # 0.12 H Absolute Neutrophils 8.06 H POC PT 13.9 POC INR 1.2 APTT 24.6 POC VBG pH POC VBG pCO2 at Temp POC VBG pO2 POC VBG HCO3 POC VBG Total CO2 POC Venous O2 Sat POC VBG Base Excess VBG Lactic Acid POC Sodium Sodium POC Potassium Potassium POC Chloride Chloride Carbon Dioxide POC Total CO2 Anion Gap POC BUN BUN Creatinine POC Creatinine GFR Calculation Glucose POC Glucose Hemoglobin A1c Estim Average Glucose Uric Acid Calcium POC WB Ioniz Calcium Phosphorus Magnesium Total Bilirubin Direct Bilirubin GGT AST ALT Alkaline Phosphatase Lactate Dehydrogenase Total Protein Albumin Globulin Albumin/Globulin Ratio Triglycerides Cholesterol LDL Cholesterol, Calc Non-HDL Cholesterol HDL Cholesterol POC Troponin I Discharge Plan Patient/Caregiver Discharge Instructions Activity: increase activity as tolerated Diet: Consistent Carbohydrate Prescriptions: New aspirin 81 mg capsule 81 mg PO QDAY Qty: 60 0RF clopidogrel [Plavix] 75 mg tablet 75 mg PO QDAY Qty: 60 0RF Continued diclofenac sodium 1 % gel See Rx Instructions .ROUTE .COMPLEX Qty: 100 0RF Rx Instructions: apply to affected areas as directed twice daily; omeprazole 20 mg capsule,delayed release(DR/EC) 20 mg PO QDAY Qty: 90 3RF Rx Instructions: swallow whole (do not chew/crush/cut) sertraline 100 mg tablet 100 mg PO QDAY Qty: 90 3RF Rx Instructions: Dose increase. Hold until patient requests refill metformin 500 mg tablet extended release 24 hr 500 mg PO QDAY Qty: 90 3RF pravastatin 40 mg tablet 40 mg PO QHS Qty: 90 3RF ipratropium bromide 42 mcg (0.06 %) spray,non-aerosol 2 spray intranasal TID-QID PRN (Reason: allergy symptoms) Qty: 15 3RF Rx Instructions: administer into each nostril prednisone 5 mg tablet 5 mg PO QDAY Qty: 60 0RF budesonide-formoterol [Symbicort] 160-4.5 mcg/actuation HFA aerosol inhaler 2 puff inhalation BID Qty: 10.2 0RF folic acid 1 mg tablet 1 mg PO QDAY Qty: 90 1RF methotrexate sodium 2.5 mg tablet 25 mg PO QWEEK Qty: 120 1RF trazodone 50 mg tablet 100 mg PO QHS PRN (Reason: insomnia) Qty: 90 3RF albuterol sulfate 90 mcg/actuation HFA aerosol inhaler 2 puff inhalation Q6H PRN (Reason: shortness of breath or wheezing) Qty: 6.7 1RF acetaminophen [Tylenol] 325 mg tablet 650 mg PO .q4-6 PRN (Reason: Pain) lidocaine [Lidoderm] 5 % adhesive patch,medicated 1 patch topical QDAY Qty: 15 0RF Rx Instructions: leave on most painful area for up to 12 hrs Follow Up Plan Follow up with: Darryl Hill MD [Physician] - (carotid artery stenosis and other stenotic lesions. recent TIA.) Darryl Luna DO [Primary Care Provider] - Patient Disposition: Home, Self-Care Prognosis: Good Overall status at discharge: patient is progressing back to baseline Discharge Orders: Discharge Order (Routine); Ordered 04/03/23 Ordered By: Juan J Freitas
[2023-04-03] MEDS: NICOTINE 21 MG PATCH TOPICAL SCH ×2 (08:19→08:51)
[2023-04-03] MEDS: NICOTINE 7 MG PATCH TOPICAL SCH ×2 (08:19→08:52)
[2023-04-03] MEDS: DOCUSATE SODIUM 100 MG CAPSULE PO SCH (08:19)
[2023-04-03] MEDS: BUDESONIDE FORMOTEROL INH SCH (08:20)
[2023-04-03] MEDS ORDERED: ENOXAPARIN 40 MG/0.4 ML SYRINGE SQ SCH (09:00)
[2023-04-03] MEDS ORDERED: predniSONE 5 MG TABLET PO SCH (09:00)
[2023-04-03] MEDS ORDERED: ASPIRIN 81 MG TAB.CHEW PO SCH (09:00)
[2023-04-03] MEDS ORDERED: SERTRALINE 100 MG TABLET PO SCH (09:00)
[2023-04-03] MEDS ORDERED: LIDOCAINE PATCH TOPICAL SCH (09:00)
[2023-04-03] MEDS ORDERED: ASPIRIN 325 MG ENTERIC COATED TABLET PO SCH (09:00)
[2023-04-03] MEDS ORDERED: CLOPIDOGREL 75 MG TABLET PO SCH (09:00)
--- NOTE | 2023-04-05 08:02 | EKG ---
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
== END 2023-04-03 11:45 | disposition home or self-care (01) ==
LOC: ED 10:35 → ICU 10:35
PROVIDERS: ADMIT Internal Medicine; ATTEND Internal Medicine